=== PATIENT | male | born 1955 | race Caucasian/White ===

== ENCOUNTER 2018-02-23 12:22 | Outpatient (CLI) | payer OTHER ==
[~2018-02-23 12:22] MED LIST: CYCL-1 PO; IBUP-1985 PO; LACT1CAP65 PO; LEVO100T PO; MULT-1085 PO; OXYC-134 PO; TRAM50TA2 PO
== END 2018-02-23 23:59 | disposition home or self-care (01) ==
LOC: RAD 12:22
PROVIDERS: ATTEND Family Medicine
DX: M17.12 Unilateral primary osteoarthritis, left knee (principal); M25.462 Effusion, left knee; I10 Essential (primary) hypertension
CPT/HCPCS: 73560

== ENCOUNTER 2018-04-18 15:03 | Outpatient (CLI) | payer OTHER | END 2018-04-18 23:59 | disposition home or self-care (01) | LOC: RAD 15:03 | PROVIDERS: ATTEND Family Medicine | DX: S83.242A Other tear of medial meniscus, current injury, left knee, initial encounter (principal); I10 Essential (primary) hypertension; M25.462 Effusion, left knee; M17.12 Unilateral primary osteoarthritis, left knee; X58.XXXA Exposure to other specified factors, initial encounter; Y93.89 Activity, other specified; Y92.89 Other specified places as the place of occurrence of the external cause; Y99.8 Other external cause status | CPT/HCPCS: 73721 ==

== ENCOUNTER 2018-08-10 11:17 | Outpatient (CLI) | payer OTHER, MEDICARE ==
[~2018-08-10 11:17] MED LIST changes: -CYCL-1 PO; -LACT1CAP65 PO; -OXYC-134 PO; -TRAM50TA2 PO
== END 2018-08-10 23:59 | disposition home or self-care (01) ==
LOC: 64 CT 11:17
PROVIDERS: ATTEND Family Medicine
DX: N28.1 Cyst of kidney, acquired (principal); K57.30 Diverticulosis of large intestine without perforation or abscess without bleeding; R63.4 Abnormal weight loss; I10 Essential (primary) hypertension; Z85.820 Personal history of malignant melanoma of skin
CPT/HCPCS: 74176

== ENCOUNTER 2018-08-22 13:40 | Outpatient (CLI) | payer OTHER, MEDICARE ==
[2018-08-22 14:23] LABS: BASOPHILS % (AUTO) 0.5 % (0-1); EOSINOPHILS # (AUTO) 0.2 X10'3 (0-0.9); HEMATOCRIT 38.5 % (42.0-52.0); HEMOGLOBIN 12.9 g/dl (14.0-17.9); LYMPHOCYTES # (AUTO) 1.3 X10'3 (1.1-4.8); LYMPHOCYTES % (AUTO) 15.3 % (21-51); MEAN CORPUSCULAR HEMOGLOBIN 29.3 PG (27.0-31.0); MEAN CORPUSCULAR HGB CONC 33.4 % (33.0-36.5); MEAN CORPUSCULAR VOLUME 87.8 FL (78-98); MEAN PLATELET VOLUME 7.9 FL (7.4-10.4); MONOCYTES # (AUTO) 0.6 X10'3 (0-0.9); MONOCYTES % (AUTO) 7.4 % (2-12); NEUTROPHILS # (AUTO) 6.2 X10'3 (1.8-7.7); NEUTROPHILS % (AUTO) 74.8 % (42-75); PLATELET COUNT 320 X10'3 (140-440); RED BLOOD COUNT 4.38 X10'6 (4.70-6.10); RED CELL DISTRIBUTION WIDTH 15.3 % (11.5-14.5); WHITE BLOOD COUNT 8.3 X10'3 (4.5-11.0)
[2018-08-22 14:26] LABS: CLARITY,URINE CLEAR (Clear); COLOR,URINE YELLOW (Yellow); GLUCOSE, URINE NEGATIVE (Neg); KETONES,URINE NEGATIVE (Neg); LEUKOCYTE ESTERASE ,URINE TRACE (Neg); NITRITES, URINE NEGATIVE (Neg); OCCULT BLOOD,URINE NEGATIVE (Neg); PH,URINE 5.5 (4.8-8.0); PROTEIN,URINE NEGATIVE (Neg); UA COLLECTION TYPE VOIDED; UROBILINOGEN,URINE 0.2 E.U/dL (0.2-1.0)
[2018-08-22 14:38] LABS: HYALINE CASTS 0-3 /LPF (NEGATIVE); MUCUS STRANDS MODERATE /LPF (Neg); SQUAMOUS EPITHELIAL CELL,UR FEW /LPF (FEW)
[2018-08-22 14:39] LABS: BACTERIA,URINE FEW /HPF (Neg); RBC,URINE 0-2 /HPF (0-2); WBC CLUMPS,URINE FEW /HPF (NEGATIVE)
[2018-08-22 14:47] LABS: ALANINE AMINOTRANSFERASE 28 U/L (12-78); ALBUMIN/GLOBULIN RATIO 0.8 (1.1-1.5); ALKALINE PHOSPHATASE 76 IU/L (46-116); ANION GAP 8 (8-16); ASPARTATE AMINO TRANSFERASE 23 U/L (10-37); BILIRUBIN,TOTAL 0.5 MG/DL (0.1-1.0); BLOOD UREA NITROGEN 20 MG/DL (7-18); CALCIUM 8.3 MG/DL (8.5-10.1); CHLORIDE 104 MMOL/L (99-107); CHOL/HDL RATIO 4.1 (0.00-4.99); CHOLESTEROL 205 MG/DL (0-200); CREATININE 1.25 MG/DL (0.60-1.10); GLUCOSE 79 MG/DL (70-104); HDL CHOLESTEROL 50 MG/DL (35-60); LDL CHOLESTEROL 143 MG/DL (50-100); POTASSIUM 4.9 MMOL/L (3.5-5.1); SODIUM 139 MMOL/L (135-145); TOTAL CARBON DIOXIDE 27.2 MMOL/L (24-32); TRIGLYCERIDES 94 MG/DL (20-135); eGFR 59 ML/MIN
== END 2018-08-22 23:59 | disposition home or self-care (01) ==
LOC: LAB 13:40
PROVIDERS: ATTEND Family Medicine
DX: E03.9 Hypothyroidism, unspecified (principal); R53.82 Chronic fatigue, unspecified; I10 Essential (primary) hypertension; Z72.89 Other problems related to lifestyle; Z85.818 Personal history of malignant neoplasm of other sites of lip, oral cavity, and pharynx
CPT/HCPCS: 36415; 80053; 80061; 81001; 82607; 82746; 84439; 84443; 85025

== ENCOUNTER 2019-07-09 08:41 | Outpatient (CLI) | payer OTHER, MEDICARE | END 2019-07-09 23:59 | disposition home or self-care (01) | LOC: RAD 08:41 | PROVIDERS: ATTEND Physical Medicine & Rehabilitation | DX: M51.16 Intervertebral disc disorders with radiculopathy, lumbar region (principal); M48.07 Spinal stenosis, lumbosacral region; M41.86 Other forms of scoliosis, lumbar region; M53.3 Sacrococcygeal disorders, not elsewhere classified; M89.38 Hypertrophy of bone, other site; I10 Essential (primary) hypertension | CPT/HCPCS: 72148 ==

== ENCOUNTER 2019-10-02 10:40 | Outpatient (CLI) | payer OTHER, MEDICARE | END 2019-10-02 23:59 | disposition home or self-care (01) | LOC: RAD 10:40 | PROVIDERS: ATTEND Orthopaedic Surgery | DX: S83.242A Other tear of medial meniscus, current injury, left knee, initial encounter (principal); S83.412A Sprain of medial collateral ligament of left knee, initial encounter; M25.462 Effusion, left knee; X58.XXXA Exposure to other specified factors, initial encounter; Y93.9 Activity, unspecified; Y92.89 Other specified places as the place of occurrence of the external cause; Y99.8 Other external cause status | CPT/HCPCS: 73721 ==

== ENCOUNTER 2019-12-05 13:00 | Outpatient (CLI) | payer OTHER, MEDICARE | END 2019-12-05 23:59 | disposition home or self-care (01) | LOC: RAD 13:00 | PROVIDERS: ATTEND Family Medicine | DX: M17.11 Unilateral primary osteoarthritis, right knee (principal) | CPT/HCPCS: 73721 ==

== ENCOUNTER 2020-02-22 00:40 | Emergency (ER) | payer OTHER, MEDICARE ==
[~2020-02-22] VITALS: Ht 188 cm; Wt 88.6 kg
--- NOTE | 2020-02-22 00:49 | NUR ---
he has swelling to the area of injury. He is PERRLA. No trouble walking. Talking normal. Has a slight headache. Has some intermittent nausea.
[2020-02-22 01:41] VITALS: BP 134/96
--- NOTE | 2020-02-22 02:03 | NUR ---
DR ARRINGTON TALKING WITH PT ABOUT CT RESULTS. PT NOW DC READY
== END 2020-02-22 02:07 | disposition home or self-care (01) ==
LOC: ER 00:41
DX: S01.81XA Laceration without foreign body of other part of head, initial encounter (principal); I10 Essential (primary) hypertension; G89.29 Other chronic pain; Z98.890 Other specified postprocedural states; Z79.899 Other long term (current) drug therapy; W22.8XXA Striking against or struck by other objects, initial encounter; Y93.89 Activity, other specified; Y92.89 Other specified places as the place of occurrence of the external cause; Y99.8 Other external cause status
CPT/HCPCS: 70450; 99284

== ENCOUNTER 2020-02-27 11:00 | Inpatient (IN) | payer OTHER, MEDICARE ==
[~2020-02-27] VITALS: Ht 190.5 cm; Wt 121.8 kg
[2020-02-27] MEDS ORDERED: ondansetron/PF 4mg/2ml inj IV PRN (17:15)
[2020-02-27] MEDS ORDERED: HYDROcodone/acetaminophen 10/325mg tab PO PRN (17:15)
[2020-02-27] MEDS ORDERED: morphine 2 MG/ML inj. syringe IV PRN (17:15)
[2020-02-27] MEDS ORDERED: HYDROmorphone inj. 0.5 MG/0.5 ML DISP.SYRIN IV PRN (17:15)
[2020-02-27] MEDS ORDERED: HYDROcodone/acetaminophen 5mg/325mg tablet PO PRN (17:15)
[2020-02-27] MEDS ORDERED: metoclopramide 5 mg/ml inj IV PRN (17:15)
[2020-02-27] MEDS ORDERED: FLO0.4C PO (17:34)
[2020-02-27] MEDS ORDERED: DULO30CA52 PO (17:34)
[2020-02-27] MEDS ORDERED: PANT-47 PO (17:34)
[2020-02-27] MEDS ORDERED: LEVO125T PO (17:35)
[2020-02-27] MEDS: HYDROmorphone 1 mg/ml syringe IV PRN (17:42)
--- NOTE | 2020-02-27 18:29 | NUR ---
Problems reprioritized. Patient report given, questions answered & plan of care reviewed with Shonda THURMAN.
[2020-02-27 18:44] VITALS: BP 137/60
--- NOTE | 2020-02-27 18:52 | NUR ---
Problems reprioritized. Patient report given, questions answered & plan of care reviewed with Shonda THURMAN.
--- NOTE | 2020-02-28 01:30 | NUR ---
Laura went home to sleep for a few hours. gave her phone number and room number of pt. she expects to be back at 0800.
[2020-02-28] MEDS: LORazepam 2 mg/ml vial IV PRN ×2 (01:33→12:40)
[2020-02-28] MEDS: morphine 10mg/0.5ml (conc. morphine) oral syringe PO PRN (04:53)
--- NOTE | 2020-02-28 09:11 | NUR ---
Initial: Per H&P pt with dense right-sided hemiplegia and possible aspiration pneumonia about five days ago, admitted for end-of-life care, currently DNR with comfort care. Pt obtunded per physical assessment. Pt with active regular diet order however documented as NPO in care trends. No nutrition intervention implemented at this time given code status. Will continue to follow per LOS. Recommendations: 1) Bowel care per comfort care measures Addendum: 02/28/20 at [address] Amended: Links added.
[2020-02-28 10:00] VITALS: BP 143/74
--- NOTE | 2020-02-28 10:30 | NUR ---
tracheal deviation noted to right Addendum: 02/28/20 at 1310 by Antionette Ashley RN Amended: Links added.
--- NOTE | 2020-02-28 12:25 | NUR ---
received report from katalina bess
[2020-02-28] MEDS: HYDROmorphone 1 mg/ml syringe IV PRN (13:53)
[2020-02-28] MEDS ORDERED: morphine 10mg/0.5ml (conc. morphine) oral syringe PO ONE (15:25)
[2020-02-28] MEDS ORDERED: morphine 10mg/0.5ml (conc. morphine) oral syringe PO PRN ×2 (15:25→16:20)
--- NOTE | 2020-02-28 17:37 | NUR ---
pt sitting up watching tv with family
[2020-02-28 18:00] VITALS: BP 152/91
--- NOTE | 2020-02-28 18:50 | NUR ---
Patient in room [facility]. I have received report from Josey THURMAN and had the opportunity to ask questions and assume patient care.
--- NOTE | 2020-02-28 23:24 | NUR ---
Removed 10 stitches from Right forehead per MD orders. 2 band-aids placed. Patient tolerated procedure well.
[2020-02-28] MEDS: morphine 10mg/0.5ml (conc. morphine) oral syringe PO SCH (23:49)
[2020-02-29] VITALS: BP 162/97
[2020-02-29] MEDS: morphine 2 MG/ML inj. syringe IV PRN ×2 (04:47→14:01)
[2020-02-29] MEDS: LORazepam 2 mg/ml vial IV PRN ×4 (06:02→23:02)
--- NOTE | 2020-02-29 06:06 | NUR ---
Patient trying to get out of bed. Shaking rails and getting agitated. Ativan given
--- NOTE | 2020-02-29 06:27 | NUR ---
Problems reprioritized. Patient report given, questions answered & plan of care reviewed with Josey THURMAN.
[2020-02-29 08:55] VITALS: BP 163/99
[2020-02-29] MEDS: morphine 10mg/0.5ml (conc. morphine) oral syringe PO SCH (09:50)
--- NOTE | 2020-02-29 10:41 | NUR ---
PAGER ID: [phone] MESSAGE: Josey [phone] re Mr Donato in 351- please call me. The wants to discuss reversing comfort care orders. Pt appears to be improving
[2020-02-29 11:00] VITALS: BP 143/89
[2020-02-29] MEDS ORDERED: dextrose 5%-normal saline 1,000 ML IV SCH (11:20)
[2020-02-29] MEDS: morphine 10mg/0.5ml (conc. morphine) oral syringe PO PRN ×2 (13:25→19:49)
[2020-02-29] MEDS ORDERED: K and/or MAG REPLACEMENT MC SCH (14:15)
[2020-02-29] MEDS ORDERED: potassium CL 10mEq/100ml bag 100 ML IV PRN (14:15)
[2020-02-29] MEDS ORDERED: magnesium 4gm in 100ml NS 100 ML IV PRN (14:15)
[2020-02-29] MEDS ORDERED: magnesium Cl slow-release 64mg tablet PO PRN (14:15)
[2020-02-29] MEDS ORDERED: potassium Cl 20 mEq SR tablet PO PRN ×2 (14:15)
[2020-02-29] MEDS ORDERED: LORazepam 2 mg/ml vial IM ONE (14:25)
--- NOTE | 2020-02-29 15:00 | NUR ---
At pt bedside, photonics engineering technologist reports that pt is pulling at catheter and won't leave it alone. I went to pt's bedside to stay with him as there was no one else there. The pt was lying quietly then intermittently pulling/shaking his private area. He then looked very disressed and frustrated. Upon palpation of the penis I could feel the catheter kinked inside, I tried to deflate the bulb but it would not deflate. I called the CRN Marlin to help trouble shoot and with some manipulation of the tube she was able to withdraw the fluid from the bulb, at that point pink/red urine filled the urinary catheter tubing and clive blood from the urinary meatus. I withdrew the catheter tube entirely and the patient then voided a copious amt of urine. After the bed was changed and the patient was bathed he lay quietly and in no distress.
[2020-02-29] MEDS ORDERED: aspirin 300mg supp.rect RC ONE (15:40)
[2020-02-29] MEDS ORDERED: atorvastatin 20mg tablet PO SCH (15:40)
[2020-02-29 16:31] LABS: BASOPHILS # (AUTO) 0.1 X10'3 (0-0.2); BASOPHILS % (AUTO) 0.6 % (0-1); EOSINOPHILS # (AUTO) 0.1 X10'3 (0-0.9); EOSINOPHILS % (AUTO) 0.8 % (0-6); HEMATOCRIT 51.1 % (42.0-52.0); HEMOGLOBIN 16.8 g/dl (14.0-17.9); LYMPHOCYTES # (AUTO) 0.9 X10'3 (1.1-4.8); LYMPHOCYTES % (AUTO) 6.8 % (21-51); MEAN CORPUSCULAR HEMOGLOBIN 29.8 PG (27.0-31.0); MEAN CORPUSCULAR HGB CONC 32.9 g/dL (33.0-36.5); MEAN CORPUSCULAR VOLUME 90.5 FL (78-98); MONOCYTES % (AUTO) 7.5 % (2-12); NEUTROPHILS # (AUTO) 10.8 X10'3 (1.8-7.7); NEUTROPHILS % (AUTO) 84.3 % (42-75); PLATELET COUNT 233 X10'3 (140-440); RED BLOOD COUNT 5.65 X10'6 (4.70-6.10); RED CELL DISTRIBUTION WIDTH 15.5 % (11.5-14.5); WHITE BLOOD COUNT 12.8 X10'3 (4.5-11.0)
[2020-02-29 16:46] LABS: ALANINE AMINOTRANSFERASE 25 U/L (12-78); ALBUMIN 3.3 G/DL (3.4-5.0); ALBUMIN/GLOBULIN RATIO 0.7 (1.1-1.5); ALKALINE PHOSPHATASE 69 IU/L (46-116); ANION GAP 10 (8-16); ASPARTATE AMINO TRANSFERASE 24 U/L (10-37); BILIRUBIN,TOTAL 0.5 MG/DL (0.1-1.0); BLOOD UREA NITROGEN 31 MG/DL (7-18); BUN/CREATININE RATIO 30.1 (5.4-32.0); CALCIUM 9.2 MG/DL (8.5-10.1); CHLORIDE 114 MMOL/L (99-107); CREATININE 1.03 MG/DL (0.60-1.10); GLUCOSE 114 MG/DL (70-104); MAGNESIUM 2.4 MG/DL (1.5-2.4); PHOSPHORUS 2.9 MG/DL (2.3-4.5); POTASSIUM 3.1 MMOL/L (3.5-5.1); SODIUM 148 MMOL/L (135-145); TOTAL CARBON DIOXIDE 24.3 MMOL/L (24-32); TOTAL PROTEIN 7.8 G/DL (6.4-8.2); eGFR 73 ML/MIN
--- NOTE | 2020-02-29 18:25 | NUR ---
Received report from primary care nurse Josey THURMAN. Assumed patient care. Patient is david
--- NOTE | 2020-02-29 18:25 | NUR ---
Received report from primary care nurse Josey THURMAN and student RN Kaelyn. Assumed patient care. Patient is resting with relaxed and unlabored respirations on room air. In no apparent distress. Will continue to monitor for changes.
--- NOTE | 2020-02-29 19:49 | NUR ---
turned onto his right side Addendum: 02/29/20 at 1949 by Jessica Sarmiento RN Amended: Links added.
[2020-03-01] MEDS: morphine 10mg/0.5ml (conc. morphine) oral syringe PO SCH ×3 (00:23→15:37)
[2020-03-01] MEDS: LORazepam 2 mg/ml vial IV PRN ×2 (05:08→20:22)
--- NOTE | 2020-03-01 06:48 | NUR ---
Reported off to Araceli THURMAN. Patient is resting with relaxed and unlabored respirations on room air. In no apparent distress. Sitter at bedside.
[2020-03-01 07:00] VITALS: BP 165/95
--- NOTE | 2020-03-01 07:19 | NUR ---
Patient in room [facility]. I have received report from Alyssia THURMAN and had the opportunity to ask questions and assume patient care. Sitter at bedside
[2020-03-01] MEDS ORDERED: aspirin 300mg supp.rect RC SCH (08:00)
--- NOTE | 2020-03-01 18:28 | NUR ---
Patient in room [facility]. I have received report from OLMAN Charles and had the opportunity to ask questions and assume patient care with OLMAN Adan. Addendum: 03/01/20 at 1828 by Donny Hernandez RN Amended: Links added.
--- NOTE | 2020-03-01 18:32 | NUR ---
Problems reprioritized. Patient report given, questions answered & plan of care reviewed with Antionette THURMAN and Ching TUHRMAN, at bedside. .
--- NOTE | 2020-03-01 19:08 | NUR ---
Patient in room [facility]. I have received report from Evie RABAGO and Araceli THURMAN and had the opportunity to ask questions and assume patient care.
[2020-03-01 20:11] VITALS: BP 117/66
[2020-03-02] MEDS: morphine 10mg/0.5ml (conc. morphine) oral syringe PO SCH ×4 (00:12→23:45)
[2020-03-02] MEDS: LORazepam 2 mg/ml vial IV PRN ×6 (02:14→22:13)
--- NOTE | 2020-03-02 05:38 | NUR ---
NURSING ASSESSMENT REVIEWED Addendum: 03/02/20 at 0539 by Donny Hernandez RN Amended: Links added.
--- NOTE | 2020-03-02 05:41 | NUR ---
CONDOM CATH PLACED ON PT
--- NOTE | 2020-03-02 06:37 | NUR ---
Problems reprioritized. Patient report given, questions answered & plan of care reviewed with Laura THURMAN.
--- NOTE | 2020-03-02 06:42 | NUR ---
Patient in room [facility]. I have received report from andrei darden and had the opportunity to ask questions and assume patient care.
[2020-03-02 07:00] VITALS: BP 147/108
[2020-03-02] MEDS: HYDROmorphone 1 mg/ml syringe IV PRN ×2 (14:44→20:32)
[2020-03-02 18:00] VITALS: BP 127/86
--- NOTE | 2020-03-02 18:30 | NUR ---
Patient in room [facility]. I have received report from DEBRA and had the opportunity to ask questions and assume patient care. ASSUMED CARE OF PT WITH RN STUDENT AMBROSIO Means
--- NOTE | 2020-03-02 18:58 | NUR ---
ALL CARES GIVEN PER COMFORT CARE. SPOUSE PRESENT IN ROOM. PATIENT APPEARS COMFORTABLE AT TIME OF REPORT.
--- NOTE | 2020-03-02 18:59 | NUR ---
Problems reprioritized. Patient report given, questions answered & plan of care reviewed with POOL THURMAN.
[2020-03-02 19:00] VITALS: BP 127/86
[2020-03-03] MEDS: HYDROmorphone 1 mg/ml syringe IV PRN ×4 (00:36→21:40)
--- NOTE | 2020-03-03 04:09 | NUR ---
Student documentation: I have reviewed and agree with all interventions, assessments performed and documented by AMBROSIO Feldman Medication Administration: For this medication-pass time frame, all medication were reviewed, dispensed, administered and documented per hospital policy by AMBROSIO Means
--- NOTE | 2020-03-03 06:54 | NUR ---
Patient in room [facility]. I have received report from OLMAN LANZA and had the opportunity to ask questions and assume patient care.
[2020-03-03 08:00] VITALS: BP 146/104
[2020-03-03] MEDS: morphine 10mg/0.5ml (conc. morphine) oral syringe PO SCH ×2 (08:39→16:47)
--- NOTE | 2020-03-03 18:30 | NUR ---
Patient in room [facility]. I have received report from WILBUR and had the opportunity to ask questions and assume patient care. ASSUMED CARE OF PT WITH RN STUDENT AMBROSIO Means
[2020-03-03 19:20] VITALS: BP 166/111
[2020-03-03] MEDS: LORazepam 2 mg/ml vial IV PRN (21:01)
[2020-03-03] MEDS: morphine 10mg/0.5ml (conc. morphine) oral syringe PO PRN (21:07)
[2020-03-04] MEDS: morphine 10mg/0.5ml (conc. morphine) oral syringe PO SCH ×3 (00:09→16:21)
[2020-03-04] MEDS: HYDROmorphone 1 mg/ml syringe IV PRN ×3 (01:44→19:57)
[2020-03-04] MEDS: LORazepam 2 mg/ml vial IV PRN (04:59)
--- NOTE | 2020-03-04 06:23 | NUR ---
Problems reprioritized. Patient report given, questions answered & plan of care reviewed with ALICIA. [].
[2020-03-04 07:30] VITALS: BP 147/103
[2020-03-04 20:00] VITALS: BP 140/95
[2020-03-05] MEDS ORDERED: scopolamine 1.5mg patch.TD72 TD ONE (00:05)
[2020-03-05] MEDS: morphine 10mg/0.5ml (conc. morphine) oral syringe PO SCH ×3 (00:17→16:15)
[2020-03-05] MEDS: HYDROmorphone 1 mg/ml syringe IV PRN ×4 (02:05→21:26)
--- NOTE | 2020-03-05 06:39 | NUR ---
Patient in room [facility]. I have received report from brenda THURMAN and had the opportunity to ask questions and assume patient care.
--- NOTE | 2020-03-05 06:41 | NUR ---
reported to days. noted turn q2 and medication routine per 's request. pt resting w/o distress. bed alarm active
[2020-03-05 07:00] VITALS: BP 151/87
--- NOTE | 2020-03-05 10:24 | NUR ---
Reassessment: patient on comfort care. No BM since 02/21, 11 days ago. No routine bowel care. Does have prn pain medications, given daily. Would benefit from bowel care for GI comfort, notified MD. Was able to eat 50% average of meals on 03/02, all other meals 0% with pureed food and nectar thick liquids. Recommendations: 1) Bowel care per comfort care measures Addendum: 03/05/20 at [address] Amended: Links added.
[2020-03-05 11:00] VITALS: BP 101/50
--- NOTE | 2020-03-05 17:31 | NUR ---
Patient medicated as per EMAR was able to answer a question when asked with "yes" Appears to track when addressed. present in room during afternoon.
--- NOTE | 2020-03-05 18:04 | NUR ---
Problems reprioritized. Patient report given, questions answered & plan of care reviewed with Alyssia THURMAN.
--- NOTE | 2020-03-05 18:10 | NUR ---
Received report from primary care nurse Laura THURMAN. Assumed patient care. Patient is awake and alert on room air. In no apparent distress. Subha is at the bedside. Call light and items of frequent use within reach. Will continue to monitor for changes.
--- NOTE | 2020-03-05 18:36 | NUR ---
Reported off to Fauzia Cage RN. Patient is awake and alert with his at his bedisde.
--- NOTE | 2020-03-05 18:45 | NUR ---
Patient in room [facility]. I have received report from TERE THURMAN and had the opportunity to ask questions and assume patient care.
[2020-03-05 19:00] VITALS: BP 129/92
[2020-03-06] MEDS: morphine 10mg/0.5ml (conc. morphine) oral syringe PO SCH ×4 (00:25→23:52)
[2020-03-06] MEDS: LORazepam 2 mg/ml vial IV PRN (04:34)
--- NOTE | 2020-03-06 05:03 | NUR ---
pt was given ativan, agitated, inc urine, pad was ulled out, daisha care, washed back new net underware on, new dry pad applied. pt given few sips of drink frederick well. Addendum: 03/06/20 at 0506 by Donny Hernandez RN Amended: Links added.
--- NOTE | 2020-03-06 06:30 | NUR ---
Problems reprioritized. Patient report given, questions answered & plan of care reviewed with WILBUR THURMAN.
[2020-03-06 11:00] VITALS: BP 139/92
--- NOTE | 2020-03-06 18:15 | NUR ---
Problems reprioritized. Patient report given, questions answered & plan of care reviewed with HUNTER HARRISON RN.
--- NOTE | 2020-03-06 18:20 | NUR ---
Patient in room [facility]. I have received report from WILBUR THURMAN and had the opportunity to ask questions and assume patient care.
--- NOTE | 2020-03-06 18:55 | NUR ---
Patient report given, questions answered & plan of care reviewed with TERE THURMAN.
[2020-03-06 19:00] VITALS: BP 147/106
[2020-03-06] MEDS: HYDROmorphone 1 mg/ml syringe IV PRN (21:05)
[2020-03-07] VITALS: BP 165/106
[2020-03-07] MEDS: HYDROmorphone 1 mg/ml syringe IV PRN ×3 (05:05→19:40)
--- NOTE | 2020-03-07 06:25 | NUR ---
Reported off to Dilcia THURMAN. Patient is resting with relaxed and unlabored respirations. Call light and items of frequent use within reach.
--- NOTE | 2020-03-07 06:29 | NUR ---
Patient in room [facility]. I have received report from OLMAN Cade and had the opportunity to ask questions and assume patient care.
[2020-03-07 07:00] VITALS: BP 143/93
[2020-03-07] MEDS: morphine 10mg/0.5ml (conc. morphine) oral syringe PO SCH ×2 (07:21→17:38)
[2020-03-07] MEDS: LORazepam 2 mg/ml vial IV PRN ×4 (13:04→23:28)
[2020-03-07] MEDS: morphine 10mg/0.5ml (conc. morphine) oral syringe PO PRN ×2 (13:19→23:27)
[2020-03-07 18:00] VITALS: BP 144/85
--- NOTE | 2020-03-07 18:53 | NUR ---
Problems reprioritized. Patient report given, questions answered & plan of care reviewed with OLMAN Rodrigues.
--- NOTE | 2020-03-07 18:53 | NUR ---
Patient in room [facility]. I have received report from Dilcia THURMAN and had the opportunity to ask questions and assume patient care.
[2020-03-07] MEDS: acetaminophen 650mg rectal suppository RC PRN (23:27)
[2020-03-08] MEDS: HYDROmorphone 1 mg/ml syringe IV PRN ×3 (00:18→21:19)
[2020-03-08] MEDS: morphine 10mg/0.5ml (conc. morphine) oral syringe PO SCH ×4 (01:51→23:57)
--- NOTE | 2020-03-08 06:20 | NUR ---
Problems reprioritized. Patient report given, questions answered & plan of care reviewed with Dilcia THURMAN.
--- NOTE | 2020-03-08 06:44 | NUR ---
Patient in room [facility]. I have received report from OLMAN Rodrigues and had the opportunity to ask questions and assume patient care.
[2020-03-08 08:00] VITALS: BP 100/66
--- NOTE | 2020-03-08 09:58 | NUR ---
Patient in room [facility]. I have received report from OLMAN Ha and had the opportunity to ask questions and assume patient care.
--- NOTE | 2020-03-08 10:00 | NUR ---
Problems reprioritized. Patient report given, questions answered & plan of care reviewed with OLMAN Chavez.
[2020-03-08] MEDS ORDERED: scopolamine 1.5mg patch.TD72 TD SCH (12:15)
[2020-03-08] MEDS: LORazepam 2 mg/ml vial IV PRN (13:15)
--- NOTE | 2020-03-08 14:24 | NUR ---
Per patient's spouse Keshav she would like for Sofy Ragsdale in [place], [place] (zoe [phone]) to be called when patient expires.
--- NOTE | 2020-03-08 18:05 | NUR ---
Patient in room [facility]. I have received report from Kathy THURMAN and had the opportunity to ask questions and assume patient care.
--- NOTE | 2020-03-08 18:21 | NUR ---
Problems reprioritized. Patient report given, questions answered & plan of care reviewed with OLMAN Mcdonald.
--- NOTE | 2020-03-08 19:28 | NUR ---
carmen collected before house wirer helper. will continue to monitor. Addendum: 03/08/20 at 1928 by Tamara Sherwood RN Amended: Svitlana added. Addendum: 03/08/20 at 2015 by Tamara Sherwood RN disregard note above
--- NOTE | 2020-03-09 06:31 | NUR ---
Problems reprioritized. Patient report given, questions answered & plan of care reviewed with Laura THURMAN.
--- NOTE | 2020-03-09 06:33 | NUR ---
Patient in room [facility]. I have received report from Tamara THURMAN and had the opportunity to ask questions and assume patient care.
[2020-03-09 07:00] VITALS: BP 101/69
[2020-03-09] MEDS: morphine 10mg/0.5ml (conc. morphine) oral syringe PO SCH ×3 (08:12→23:30)
[2020-03-09] MEDS: acetaminophen 650mg rectal suppository RC PRN ×2 (08:36→20:06)
[2020-03-09] MEDS: LORazepam 2 mg/ml vial IV PRN ×2 (08:46→17:03)
--- NOTE | 2020-03-09 09:12 | NUR ---
patient 101.8 medicated per wifes request with tylenol suppository. Ativan given also for comfort. repositioned, will continue to monitor. spouse present
--- NOTE | 2020-03-09 15:43 | NUR ---
Two hourly turns gone. Roxanol given as per emar. spouse left for the day. All cares given. patient respons minimally when spoken to and repositioned. will continue to monitor.
--- NOTE | 2020-03-09 17:09 | NUR ---
Agitated when turned Ativan 1mg adminidtered with effect. will continue to monitor
--- NOTE | 2020-03-09 17:42 | NUR ---
Problems reprioritized. Patient report given, questions answered & plan of care reviewed with fuad Pierce RN.
[2020-03-09 18:58] VITALS: BP 107/78
--- NOTE | 2020-03-09 23:03 | NUR ---
Spoke to Laura on the phone. Was upset in regards to the comfort care provided for the patient. States she had to fight for two days in order to receive ativan for patient when RR was 42. Advised Laura that he has had ativan administered x2 on day shift, and will keep up on medications this evening to keep patient comfortable. States she will be back in AM to see pt, is currently in [place].
[2020-03-10] MEDS: LORazepam 2 mg/ml vial IV PRN ×6 (00:28→19:06)
--- NOTE | 2020-03-10 06:27 | NUR ---
Problems reprioritized. Patient report given, questions answered & plan of care reviewed with OLMAN Sanchez.
--- NOTE | 2020-03-10 06:36 | NUR ---
Patient in room [facility]. I have received report from suzan diop rn and had the opportunity to ask questions and assume patient care.
[2020-03-10 07:00] VITALS: BP 111/82
[2020-03-10] MEDS: morphine 10mg/0.5ml (conc. morphine) oral syringe PO SCH ×2 (08:43→16:07)
[2020-03-10] MEDS: HYDROmorphone 1 mg/ml syringe IV PRN (13:20)
--- NOTE | 2020-03-10 17:36 | NUR ---
patient breathing more shallow as shift progressed 28-32. All comfort cares given. medicated with Ativan, roxenol and dilaudid. roxenol DC per DR Clark as more difficult to swallow. Spouse present with patient, much time spent offering empathetic listening. Will continue to monitor.
--- NOTE | 2020-03-10 18:00 | NUR ---
Patient observed to have Agonal breathing. shahla present with patient.
--- NOTE | 2020-03-10 18:22 | NUR ---
Problems reprioritized. Patient report given, questions answered & plan of care reviewed with Mikhail THURMAN.
--- NOTE | 2020-03-10 18:54 | NUR ---
Patient in room [facility]. I have received report from OLMAN Sanchez and had the opportunity to ask questions and assume patient care.
--- NOTE | 2020-03-10 19:12 | NUR ---
Ativan given, requests that we do not medicate for his temperature of 103.3, and do not disturb him. His respirations are 30, oxygen saturation is 68%spo2, patient is agonal breathing. Patient is not responding to name, or stimulus, breath sounds are wet and he is unable to clear secretions. is at bedside. Will continue to monitor.
[2020-03-10 19:20] VITALS: BP 95/69
--- NOTE | 2020-03-10 22:27 | NUR ---
RN IS TO DOCUMENT YES TO ALL APPLICABLE AREAS Pronouncement of : 1. Time Physician Notified:[id number] 2. Date of :03/10/20 3. Time of : 2101 4. DNR/Withdraw life support documented:n/a 5. Monitor strip has been placed on chart:Y 6. Assessment process is of one-minute duration and includes following criteria: a) Patient is unresponsive to all stimuli: Y b) Pupils fixed and non-reactive:Y c) Auscultation of precordium reveals absence of heart tones:Y d) Auscultation of lungs reveals absence of breath sounds:Y e) Absence of blood pressure / all vital signs:Y f) QRS complexes are not present on monitor / EKG strip:Y g) Pacer spikes without capture:n/a 4. Comments:Patient was pronounced at 2101. [facility] has been notified of as well as the donor network. has taken belongings.
== END 2020-03-10 23:06 | disposition expired | DRG 64 ==
LOC: ORTHO 4S 11:00 → UNDOADMIN 11:00 → ORTHO 4S 17:14 → SUR 3N 02-28 17:04
PROVIDERS: ADMIT Family Medicine; ATTEND Internal Medicine
DX: I63.512 Cerebral infarction due to unspecified occlusion or stenosis of left middle cerebral artery (principal); G93.6 Cerebral edema; G81.91 Hemiplegia, unspecified affecting right dominant side; E06.3 Autoimmune thyroiditis; I10 Essential (primary) hypertension; N40.0 Benign prostatic hyperplasia without lower urinary tract symptoms; R47.01 Aphasia; M19.90 Unspecified osteoarthritis, unspecified site; Z51.5 Encounter for palliative care; Z66 Do not resuscitate; Z82.49 Family history of ischemic heart disease and other diseases of the circulatory system; Z87.891 Personal history of nicotine dependence; Z92.21 Personal history of antineoplastic chemotherapy; Z92.3 Personal history of irradiation
CPT/HCPCS: 36415; 70551; 71045; 76937; 80053; 83735; 84100; 85025; 92508; 92616; G0378; J1170; J2060; J2270; J7042